=== PATIENT | male | born 1960 | race Caucasian/White ===

== ENCOUNTER 2019-09-20 21:33 | Emergency (ER) | payer SELFPAY ==
[~2019-09-20] VITALS: Ht 182.9 cm; Wt 95.3 kg
[2019-09-20 21:33] VITALS: BP 155/106
[2019-09-20 22:25] VITALS: BP 155/106
== END 2019-09-20 22:25 | disposition home or self-care (01) ==
LOC: MED 21:33
DX: M79.606 Pain in leg, unspecified (principal); Z02.89 Encounter for other administrative examinations; Z88.0 Allergy status to penicillin
CPT/HCPCS: 99281; 99283